=== PATIENT | female | born 1970 | race Hispanic/Latino ===

== ENCOUNTER 2018-04-13 16:11 | Emergency (ER) | payer SELFPAY ==
[~2018-04-13] VITALS: Ht 149.9 cm; Wt 72.6 kg
[2018-04-13] MEDS ORDERED: HYDROCODONE/APAP 7.5MG-325MG 1 EA TAB PO PRN (17:00)
--- NOTE | 2018-04-13 17:33 | Diagnostic Imaging Report ---
EXAM: KNEE LEFT THREE VIEWS DATE: 04/13/2018 4:47 PM INDICATION: ^r/o fx fall COMPARISON: None FINDINGS: No fracture or subluxation identified. Joint spaces are maintained. No significant joint effusion. IMPRESSION: No acute findings. Signed by: Dr. Itz Bird MD on 04/13/2018 5:29 PM
--- NOTE | 2018-04-13 17:33 | Diagnostic Imaging Report ---
EXAM: SHOULDER LEFT 1 VIEW DATE: 04/13/2018 4:47 PM INDICATION: ^r/o fx fall COMPARISON: None FINDINGS: Exam limited by single frontal view. Evaluation for subluxation/dislocation limited. No definite fracture or subluxation identified, however. Subacromial space maintained. Visualized lung clear. IMPRESSION: Within limitations of single view, no definite acute finding. Signed by: Dr. Itz Bird MD on 04/13/2018 5:30 PM
[2018-04-13 18:09] VITALS: BP 144/79
== END 2018-04-13 18:14 | disposition home or self-care (01) ==
LOC: ER 16:16
DX: S40.012A Contusion of left shoulder, initial encounter (principal); S80.02XA Contusion of left knee, initial encounter; W01.0XXA Fall on same level from slipping, tripping and stumbling without subsequent striking against object, initial encounter; Y92.008 Other place in unspecified non-institutional (private) residence as the place of occurrence of the external cause
CPT/HCPCS: 73020; 99283

== ENCOUNTER 2018-08-13 17:23 | Emergency (ER) | payer BC, OTHER ==
[~2018-08-13] VITALS: Ht 149.9 cm; Wt 72.6 kg
--- OUTSIDE RECORDS SUMMARY | 2018-08-13 17:26 | XMS REPORT ---
Author [facility] Address Unknown Phone Unavailable Care Team Providers Care Dust Collector Treater Name Role Phone Karissa LUTZ Unavailable Unavailable Payers Payer Name Policy Type Policy Number Effective Date Expiration Date Problems This patient has no known problems. Allergies, Adverse Reactions, Alerts Allergy Name Allergy Type Status Severity Reaction(s) Onset Date Inactive Date Treating Clinician Comments iodine DA Active U 2014-03-11 00:00:00 Medications This patient has no known medications. Results Test Description Test Time Test Comments Text Results Atomic Results Result Comments CBC W/AUTO DIFF 2018-06-29 18:06:00 WHITE BLOOD CELL (test code=WBC) 11.7 K/mm3 4.5-12.5 RED BLOOD CELL (test code=RBC) 4.95 mill/mm3 3.7-5.2 HEMOGLOBIN (test code=HGB) 14.8 gram/dL 11.5-15.5 HEMATOCRIT (test code=HCT) 45.4 % 36.0-46.0 MEAN CELL VOLUME (test code=MCV) 91.7 fL 80-98 MEAN CELL HGB (test code=MCH) 29.9 picogram 27.0-33.0 MEAN CELL HGB CONCETRATION (test code=MCHC) 32.6 gram/dL 33.0-36.0 RED CELL DISTRIBUTION WIDTH (test code=RDW) 12.3 % 11.6-16.2 RED CELL DISTRIBUTION WIDTH SD (test code=RDW-SD) 40.9 fL 37.0-51.0 PLATELET COUNT (test code=PLT) 269 K/mm3 150-450 MEAN PLATELET VOLUME (test code=MPV) 9.5 fL 6.7-11.0 NEUTROPHIL % (test code=NT%) 64.7 % 39.0-69.0 IMMATURE GRANULOCYTE % (test code=IG%) 0.3 % 0.0-5.0 LYMPHOCYTE % (test code=LY%) 26.5 % 25.0-55.0 MONOCYTE % (test code=MO%) 7.0 % 0.0-10.0 EOSINOPHIL % (test code=EO%) 1.1 % 0.0-5.0 BASOPHIL % (test code=BA%) 0.4 % 0.0-1.0 NUCLEATED RBC % (test code=NRBC%) 0.0 % 0-0 NEUTROPHIL # (test code=NT#) 7.54 K/mm3 1.8-7.7 IMMATURE GRANULOCYTE # (test code=IG#) 0.03 x10 3/uL 0-0.03 LYMPHOCYTE # (test code=LY#) 3.09 K/mm3 1.0-5.0 MONOCYTE # (test code=MO#) 0.82 K/mm3 0-0.8 EOSINOPHIL # (test code=EO#) 0.13 K/mm3 0.0-0.5 BASOPHIL # (test code=BA#) 0.05 K/mm3 0.0-0.2 NUCLEATED RBC # (test code=NRBC#) 0.00 K/mm3 0.0-0.1 BASIC METABOLIC [id number] 17:57:00* Test Item Value Reference Range Comments SODIUM (test code=NA) 141 mmol/L 136-145 POTASSIUM (test code=K) 3.6 mmol/L 3.5-5.1 CHLORIDE (test code=CL) 108.0 mmol/L 98-107 CARBON DIOXIDE (test code=CO2) 26.0 mmol/L 21-32 ANION GAP (test code=GAP) 10.6 10-20 GLUCOSE (test code=GLU) 91 mg/dL 74-106 BLOOD UREA NITROGEN (test code=BUN) 16 mg/dL 7-18 GLOMERULAR FILTRATION RATE (test code=GFR) 59 mL/min >=60 Estimated GFR by using Modified MDRD formula.Chronic kidney disease is defined as either kidney damageor GFR <60 mL/min/1.73 m2 for >3 months. CREATININE (test code=CREAT) 1.00 mg/dL 0.55-1.02 Note change in reference range due to change in reagent. BUN/CREATININE RATIO (test code=BUN/CREA) 16.3 10-20 CALCIUM (test code=CA) 9.1 mg/dL 8.5-10.1 CBC W/AUTO [id number] 17:56:00* Test Item Value Reference Range Comments WHITE BLOOD CELL (test code=WBC) K/mm3 4.5-12.5 RED BLOOD CELL (test code=RBC) mill/mm3 3.7-5.2 HEMOGLOBIN (test code=HGB) 14.8 gram/dL 11.5-15.5 HEMATOCRIT (test code=HCT) 45.4 % 36.0-46.0 MEAN CELL VOLUME (test code=MCV) fL 80-98 MEAN CELL HGB (test code=MCH) picogram 27.0-33.0 MEAN CELL HGB CONCETRATION (test code=MCHC) gram/dL 33.0-36.0 RED CELL DISTRIBUTION WIDTH (test code=RDW) % 11.6-16.2 RED CELL DISTRIBUTION WIDTH SD (test code=RDW-SD) fL 37.0-51.0 PLATELET COUNT (test code=PLT) K/mm3 150-450 MEAN PLATELET VOLUME (test code=MPV) fL 6.7-11.0 NEUTROPHIL % (test code=NT%) % 39.0-69.0 IMMATURE GRANULOCYTE % (test code=IG%) % 0.0-5.0 LYMPHOCYTE % (test code=LY%) % 25.0-55.0 MONOCYTE % (test code=MO%) % 0.0-10.0 EOSINOPHIL % (test code=EO%) % 0.0-5.0 BASOPHIL % (test code=BA%) % 0.0-1.0 NEUTROPHIL # (test code=NT#) K/mm3 1.8-7.7 LYMPHOCYTE # (test code=LY#) K/mm3 1.0-5.0 MONOCYTE # (test code=MO#) K/mm3 0-0.8 EOSINOPHIL # (test code=EO#) K/mm3 0.0-0.5 BASOPHIL # (test code=BA#) K/mm3 0.0-0.2 - CT HEAD/BRAIN W/O [id number] 17:56:00 Name: JUSTIN HORNE [facility] : 1970 Age/S: 47 / F [address] [facility] Unit #: [id number] Loc: [place] [id number] Phys: Mason Nolen Acct: [id number] Dis Date: Status: REG ER PHONE #: [phone] Exam Date: 06/29/2018 1754 FAX #: [phone] Reason: Headache EXAMS: CPT CODE: [id number] CT HEAD/BRAIN W/O CONT [id number] REASON FOR EXAM: Headache EXAM ORDER DATE: 06/29/2018 5:27 PM Ordering M.Piter.: Mason Nolen PROCEDURE: - CT HEAD/BRAIN W/O CONT COMPARISON: FINDINGS: CT images of the brain were obtained without IV contrast. Dose reduction techniques were applied. The brain parenchyma is within normal limits. The ivy-white matter delineation is unremarkable. The ventricles, cisterns, and sulci are unremarkable. There is no evidence of hemorrhage, mass, mass effect. There is no evidence of acute or old infarct. The calvarium is intact. IMPRESSION: Unremarkable brain. at 1756 Reported and signed by: Perry Marrero M.D. CC: Braulio Fabian MD; Mason Nolen Technologist:RT ANDREY(R) CT CTDI: DLP: Trnscb Date/Time: 06/29/2018 (1756) [email or web address] Orig Print D/T: S: 06/29/2018 (1800) CTDI: DLP: PAGE 1 Signed Report KNEE LEFT THREE [id number] 17:29:00 [place] [address] Patient Name: JUSTIN HORNE MR #: [id number] : 1970 Age/Sex: 47/F Req #: [id number] Adm Physician: Ordered by: ROSA PADILLA SUPERVISOR [employer] Report #: [id number] Location: ER Room/Bed: Procedure: [id number] DX/ KNEE LEFT THREE VIEWS Exam Date: Exam Time: REPORT STATUS: Signed EXAM: KNEE LEFT THREE VIEWS DATE: 04/13/2018 4:47 PM INDICATION: r/o fx fall COMPARISON: None FINDINGS: No fracture or subluxation identified. Joint spaces are maintained. No significant joint effusion. IMPRESSION: No acute findings. Signed by: Dr. Letty Bird MD on 04/13/2018 5:29 PM Dictated By: LETTY BIRD MD 28 Transcribed By: NKECHI on 04/13/181728 COPY TO: ROSA PADILLA SUPERVISOR [employer] SHOULDER LEFT 1 [id number] 17:29:00 [place] [address] Patient Name: JUSTIN HORNE MR #: [id number] : 1970 Age/Sex: 47/F Req #: [id number] Adm Physician: Ordered by: ROSA PADILLA SUPERVISOR [employer] Report #: [id number] Location: ER Room/Bed: Procedure: [id number] DX/ SHOULDER LEFT 1 VIEW Exam Date: Exam Time: REPORT STATUS: Signed EXAM: SHOULDER LE FT 1 VIEW DATE: 04/13/2018 4:47 PM INDICATION: r/o fx fall COMPARISON: None FINDINGS: Exam limited by single frontal view. Evaluati on for subluxation/dislocation limited. No definite fracture or subluxation id entified, however. Subacromial space maintained. Visualized lung clear. I MPRESSION: Within limitations of single view, no definite acute finding. Signed by: Dr. Letty Bird MD on 04/13/2018 5:30 PM Dictated By: LETTY BIRD MD [address] scribed By: NKECHI on 04/13/181729 COPY TO: ROSA PADILLA NP
[2018-08-13 19:21] LABS: BASOPHILS % 0.3 % (0.0-1.0); EOSINOPHILS % 0.4 % (0.0-6.0); HEMATOCRIT 44.5 % (34.2-44.1); HEMOGLOBIN 14.9 g/dL (12.0-16.0); LYMPHOCYTES # (AUTO) 2.1 (1.0-3.2); LYMPHOCYTES % 20.8 % (18.0-39.1); MEAN CORPUSCULAR HEMOGLOBIN 30.5 pg (28-32); MEAN CORPUSCULAR HGB CONC 33.5 g/dL (31-35); MONOCYTES # (AUTO) 0.7 (0.2-0.8); NEUTROPHILS # (AUTO) 7.2 (2.1-6.9); NEUTROPHILS % 71.1 % (38.7-80.0); PLATELET COUNT 242 x10e3/uL (140-360); RED BLOOD COUNT 4.89 x10e6/uL (3.6-5.1); RED CELL DISTRIBUTION WIDTH 12.2 % (11.7-14.4)
--- NOTE | 2018-08-13 19:21 | Diagnostic Imaging Report ---
History: Dizziness Comparison studies: None Technique: Axial images were obtained from the skull base to the vertex. Coronal and sagittal reconstructions obtained from the axial data. Dose modulation, iterative reconstruction, and/or weight based adjustment of the mA/kV was utilized to reduce the radiation dose to as low as reasonably achievable. Intravenous contrast: None Findings: Scalp/skull: No abnormalities. No fractures, blastic or lytic lesions. Extra-axial spaces: No masses. No fluid collections. Brain sulci: Appropriate for age. Ventricles: Normal in size and configuration. No hydrocephalus. Parenchyma: No abnormal densities. No masses, hemorrhage, acute or chronic cortical vascular insults. Sellar/suprasellar region: No abnormalities Craniocervical junction: Patent foramen magnum. No Chiari one malformation. IMPRESSION: No abnormalities. Signed by: Dr. Jimmie Lambert M.D. on 08/13/2018 7:18 PM
[2018-08-13 19:24] LABS: CLARITY,URINE SL CLOUDY (CLEAR); COLOR,URINE YELLOW (YELLOW)
[2018-08-13 19:25] LABS: BILIRUBIN,URINE NEGATIVE (NEGATIVE); KETONES,URINE 1+ (NEGATIVE); LEUKOCYTE ESTERASE ,URINE 1+ (NEGATIVE); NITRITE,URINE NEGATIVE (NEGATIVE); PROTEIN,URINE DIPSTICK NEGATIVE (NEGATIVE); URINE UROBILINOGEN 0.2 mg/dL (0.2 - 1)
[2018-08-13 19:27] LABS: INR 0.93
[2018-08-13 19:34] LABS: BACTERIA,URINE MANY /HPF; EPITHELIAL CELLS,URINE MODERATE /LPF
[2018-08-13 19:35] LABS: ALANINE AMINOTRANSFERASE 18 IU/L (0-55); ALBUMIN 4.3 g/dL (3.5-5.0); ALBUMIN/GLOBULIN RATIO 1.1 (0.8-2.0); ALKALINE PHOSPHATASE 80 IU/L (40-150); ANION GAP 13.6 mmol/L (8-16); BLOOD UREA NITROGEN 20 mg/dL (7-26); BUN/CREATININE RATIO 22 (6-25); CALCIUM 9.7 mg/dL (8.4-10.2); CARBON DIOXIDE 26 mmol/L (22-29); CHLORIDE 104 mmol/L (98-107); CREATININE, SERUM 0.89 mg/dL (0.57-1.11); EST GLOMERULAR FILTRATION RATE > 60 ML/MIN (60-); GLUCOSE 80 mg/dL (74-118); POTASSIUM 3.6 mmol/L (3.5-5.1); SODIUM 140 mmol/L (136-145)
--- NOTE | 2018-08-13 23:12 | Diagnostic Imaging Report ---
EXAMINATION: PA and lateral views of the chest. COMPARISON: None CLINICAL HISTORY: Low blood pressure, chest pressure DISCUSSION: Lines/tubes: None. Lungs: The lungs are well inflated and clear. There is no evidence of pneumonia or pulmonary edema. Pleura: There is no pleural effusion or pneumothorax. Heart and mediastinum: Cardiomediastinal silhouette is unremarkable. Pulmonary vasculature is normal. Bones and soft tissues: No acute bony abnormalities . Rightward curvature of the thoracic spine. IMPRESSION: No acute cardiopulmonary abnormalities. Signed by: Dr. Jerry King M.D. on 08/13/2018 11:09 PM
[2018-08-13] MEDS ORDERED: CEFTRIAXONE SOD 1 GM/NS 50 ML 50 ML IV ONE (23:45)
[2018-08-14] MEDS ORDERED: ACETAMINOPHEN/CODEINE 300MG - 30MG TAB PO ONE
[2018-08-14 00:17] VITALS: BP 120/86
== END 2018-08-14 00:55 | disposition home or self-care (01) ==
LOC: ER 17:27
DX: R42 Dizziness and giddiness (principal); R55 Syncope and collapse; N30.91 Cystitis, unspecified with hematuria
CPT/HCPCS: 36415; 70450; 71046; 80053; 81001; 85025; 85610; 93005; 99284; J0696

== ENCOUNTER 2023-09-12 17:35 | Observation (INO) | payer OTHER ==
[~2023-09-12] VITALS: Ht 149.9 cm; Wt 89.4 kg
[~2023-09-12 17:35] MED LIST: ACETAMINOPHEN-1 EAC4 PO; LISINOPRIL30 MG PO; MELATONIN3 MG PO; PREDNISONE20 MG PO; ZYRTEC10 MG PO
[2023-09-12 18:47] LABS: BASOPHILS # (AUTO) 0.1 (0.0-0.1); BASOPHILS % 0.9 % (0.0-1.0); EOSINOPHILS # (AUTO) 0.2 (0.0-0.4); EOSINOPHILS % 2.2 % (0.0-6.0); HEMATOCRIT 41.9 % (34.2-44.1); HEMOGLOBIN 14.8 g/dL (12.0-16.0); LYMPHOCYTES # (AUTO) 2.3 (1.0-3.2); LYMPHOCYTES % 26.2 % (18.0-39.1); MEAN CORPUSCULAR HEMOGLOBIN 31.6 pg (28-32); MEAN CORPUSCULAR HGB CONC 35.3 g/dL (31-35); MEAN CORPUSCULAR VOLUME 89.5 fL (81-99); MONOCYTES # (AUTO) 0.8 (0.2-0.8); MONOCYTES % 8.7 % (4.4-11.3); NEUTROPHILS # (AUTO) 5.4 (2.1-6.9); NEUTROPHILS % 61.4 % (38.7-80.0); PLATELET COUNT 270 x10e3/uL (140-360); RED BLOOD COUNT 4.68 x10e6/uL (3.6-5.1); RED CELL DISTRIBUTION WIDTH 12.7 % (11.7-14.4); WHITE BLOOD COUNT 8.83 x10e3/uL (4.8-10.8)
[2023-09-12 18:59] LABS: ALBUMIN 4.5 g/dL (3.5-5.0); ALBUMIN/GLOBULIN RATIO 1.4 (0.8-2.0); ANION GAP 15.9 mmol/L (8-16); BILIRUBIN,TOTAL 0.7 mg/dL (0.2-1.2); CALCIUM 9.7 mg/dL (8.4-10.2); CREATININE, SERUM 0.83 mg/dL (0.57-1.11); POTASSIUM 3.9 mmol/L (3.5-5.1); TOTAL PROTEIN 7.7 g/dL (6.5-8.1)
[2023-09-12 20:14] LABS: BILIRUBIN,URINE NEGATIVE (NEGATIVE); CLARITY,URINE CLOUDY (CLEAR); COLOR,URINE YELLOW (YELLOW); GLUCOSE, URINE NEGATIVE (NEGATIVE); KETONES,URINE TRACE (NEGATIVE); LEUKOCYTE ESTERASE ,URINE NEGATIVE (NEGATIVE); NITRITE,URINE NEGATIVE (NEGATIVE); PH,URINE 6 (5 - 7); PROTEIN,URINE DIPSTICK NEGATIVE (NEGATIVE); URINE UROBILINOGEN 0.2 mg/dL (0.2 - 1)
[2023-09-12 20:34] LABS: BACTERIA,URINE MANY /HPF; EPITHELIAL CELLS,URINE FEW /LPF; OTHER CRYSTALS,URINE PRESENT; WBC,URINE (MAN) 0-5 /HPF (0-5)
[2023-09-12] MEDS ORDERED: HYDRALAZINE HCL 20 MG/ML VIAL IV PRN (21:15)
[2023-09-12] MEDS ORDERED: SODIUM CHLORIDE FLUSH 10 ML SYR INJ PRN (21:15)
[2023-09-12 22:30] VITALS: BP 140/88; PULSE 78; RESP 20; TEMP 98.5; O2SAT 98
[2023-09-12 22:54] VITALS: BP 140/88; PULSE 78; RESP 20; TEMP 98.5; O2SAT 98
[2023-09-12] MEDS: KETOROLAC TROMETHAMINE 30 MG/ML VIAL IM PRN (23:33)
[2023-09-12] MEDS ORDERED: METAXALONE800 MG PO (23:40)
[2023-09-12] MEDS ORDERED: TIZANIDINE HCL4 MG PO (23:40)
[2023-09-12] MEDS ORDERED: IBUPROFEN600 MG PO (23:40)
[2023-09-12 23:50] VITALS: BP 140/88; PULSE 78; RESP 20; TEMP 98.5; O2SAT 98
[2023-09-13 00:37] LABS: TROPONIN I 0.001 ng/mL (0-0.300)
[2023-09-13 04:00] VITALS: BP 143/93; PULSE 73; RESP 21; TEMP 98.7; O2SAT 94
[2023-09-13 08:08] LABS: BASOPHILS # (AUTO) 0.1 (0.0-0.1); BASOPHILS % 0.7 % (0.0-1.0); EOSINOPHILS # (AUTO) 0.2 (0.0-0.4); EOSINOPHILS % 2.6 % (0.0-6.0); HEMATOCRIT 40.6 % (34.2-44.1); HEMOGLOBIN 14.1 g/dL (12.0-16.0); LYMPHOCYTES # (AUTO) 3.5 (1.0-3.2); LYMPHOCYTES % 39.8 % (18.0-39.1); MEAN CORPUSCULAR HEMOGLOBIN 31.5 pg (28-32); MEAN CORPUSCULAR HGB CONC 34.7 g/dL (31-35); MEAN CORPUSCULAR VOLUME 90.8 fL (81-99); MONOCYTES # (AUTO) 0.9 (0.2-0.8); MONOCYTES % 9.7 % (4.4-11.3); NEUTROPHILS # (AUTO) 4.1 (2.1-6.9); PLATELET COUNT 249 x10e3/uL (140-360); RED BLOOD COUNT 4.47 x10e6/uL (3.6-5.1); RED CELL DISTRIBUTION WIDTH 12.6 % (11.7-14.4); WHITE BLOOD COUNT 8.74 x10e3/uL (4.8-10.8)
[2023-09-13] MEDS ORDERED: ACETAMINOPHEN 325 MG TAB PO PRN (08:15)
[2023-09-13] MEDS ORDERED: IBUPROFEN 600 MG TAB PO PRN (08:15)
[2023-09-13] MEDS ORDERED: ONDANSETRON HCL INJ 2MG/ML 2ML 2 MG/ML VIAL IV PRN (08:15)
[2023-09-13 08:25] VITALS: BP 136/92; PULSE 77; RESP 18; TEMP 98.6; O2SAT 98
[2023-09-13 08:32] LABS: ALBUMIN/GLOBULIN RATIO 1.4 (0.8-2.0); ANION GAP 14.9 mmol/L (8-16); CALCIUM 9.1 mg/dL (8.4-10.2); CREATINE KINASE 119 IU/L (29-168); CREATININE, SERUM 0.8 mg/dL (0.57-1.11); POTASSIUM 3.9 mmol/L (3.5-5.1); TOTAL PROTEIN 6.9 g/dL (6.5-8.1)
[2023-09-13 08:43] LABS: TROPONIN I < 0.001 ng/mL (0-0.300)
[2023-09-13] MEDS: LISINOPRIL 20 MG TAB PO SCH (10:50)
[2023-09-13 11:53] VITALS: BP 142/93; PULSE 78; RESP 20; TEMP 98.5; O2SAT 94
[2023-09-13 15:00] VITALS: BP 96/93; PULSE 80; RESP 20; TEMP 97.4; O2SAT 97
== END 2023-09-13 18:22 | disposition home or self-care (01) ==
LOC: ER 18:23 → ERHOLD 21:11 → MED/SURG3 22:11
PROVIDERS: ADMIT Internal Medicine; ATTEND Internal Medicine
DX: R41.0 Disorientation, unspecified (principal); T43.215A Adverse effect of selective serotonin and norepinephrine reuptake inhibitors, initial encounter; I10 Essential (primary) hypertension; Q05.4 Unspecified spina bifida with hydrocephalus; G93.5 Compression of brain; G89.29 Other chronic pain; M47.812 Spondylosis without myelopathy or radiculopathy, cervical region; R94.31 Abnormal electrocardiogram [ECG] [EKG]; Z11.52 Encounter for screening for COVID-19; Y92.009 Unspecified place in unspecified non-institutional (private) residence as the place of occurrence of the external cause; Z79.899 Other long term (current) drug therapy
CPT/HCPCS: 36415 ×2; 70450; 71045; 80053 ×2; 81001; 82550 ×2; 84484 ×2; 85025 ×2; 93005; 99284; G0378 ×2; U0002

== ENCOUNTER 2023-12-12 10:52 | Emergency (ER) | payer OTHER ==
[~2023-12-12] VITALS: Ht 149.9 cm; Wt 78.0 kg
[~2023-12-12 10:52] MED LIST changes: +IBUPROFEN600 MG PO; +METAXALONE800 MG PO; +TIZANIDINE HCL4 MG PO
[2023-12-12 11:01] VITALS: TEMP 98.7
[2023-12-12 12:46] LABS: BASOPHILS # (AUTO) 0.1 (0.0-0.1); BASOPHILS % 0.5 % (0.0-1.0); EOSINOPHILS # (AUTO) 0.3 (0.0-0.4); EOSINOPHILS % 3.1 % (0.0-6.0); HEMATOCRIT 40.9 % (34.2-44.1); HEMOGLOBIN 13.2 g/dL (12.0-16.0); LYMPHOCYTES # (AUTO) 2.6 (1.0-3.2); LYMPHOCYTES % 25.7 % (18.0-39.1); MEAN CORPUSCULAR HEMOGLOBIN 30.6 pg (28-32); MEAN CORPUSCULAR HGB CONC 32.3 g/dL (31-35); MEAN CORPUSCULAR VOLUME 94.9 fL (81-99); MONOCYTES # (AUTO) 0.7 (0.2-0.8); NEUTROPHILS # (AUTO) 6.5 (2.1-6.9); NEUTROPHILS % 63.4 % (38.7-80.0); PLATELET COUNT 267 x10e3/uL (140-360); RED BLOOD COUNT 4.31 x10e6/uL (3.6-5.1); RED CELL DISTRIBUTION WIDTH 12.4 % (11.7-14.4); WHITE BLOOD COUNT 10.22 x10e3/uL (4.8-10.8)
[2023-12-12 13:01] LABS: INR 1.39; PROTHROMBIN TIME 17.9 seconds (11.9-14.5)
[2023-12-12 13:02] LABS: PARTIAL THROMBOPLASTIN TIME 34.9 seconds (23.8-35.5)
[2023-12-12 13:10] LABS: ALANINE AMINOTRANSFERASE 31 IU/L (0-55); ALBUMIN/GLOBULIN RATIO 1.4 (0.8-2.0); ALKALINE PHOSPHATASE 65 IU/L (40-150); ANION GAP 15.8 mmol/L (8-16); BILIRUBIN,TOTAL 0.5 mg/dL (0.2-1.2); BLOOD UREA NITROGEN 22 mg/dL (7-26); BUN/CREATININE RATIO 22 (6-25); CARBON DIOXIDE 20 mmol/L (22-29); CHLORIDE 108 mmol/L (98-107); CREATINE KINASE 64 IU/L (29-168); CREATININE, SERUM 0.98 mg/dL (0.57-1.11); EST GLOMERULAR FILTRATION RATE 69 ML/MIN (>=60); GLUCOSE 93 mg/dL (74-118); POTASSIUM 3.8 mmol/L (3.5-5.1); SODIUM 140 mmol/L (136-145); TOTAL PROTEIN 6.9 g/dL (6.5-8.1)
[2023-12-12 13:17] LABS: TROPONIN I < 0.001 ng/mL (0-0.300)
[2023-12-12] MEDS: SODIUM CHLORIDE 0.9% 1000ML 1,000 ML IV STA (13:18)
[2023-12-12] MEDS ORDERED: SODIUM CHLORIDE 0.9% 100 ML ONE (13:42)
[2023-12-12] MEDS: ACETAMINOPHEN 325 MG TAB PO ONE (13:43)
[2023-12-12] MEDS ORDERED: IOPAMIDOL 370 MG/ML 100 ML INFUS..BTL INJ ONE (13:43)
[2023-12-12 16:22] VITALS: PULSE 65; RESP 16
[2023-12-12] MEDS ORDERED: ULTRAM 50MG50 MG PO (16:30)
[2023-12-12 16:43] VITALS: BP 120/78; PULSE 64; RESP 16; O2SAT 98
== END 2023-12-12 16:43 | disposition home or self-care (01) ==
LOC: ER 11:01
DX: R07.81 Pleurodynia (principal); I26.99 Other pulmonary embolism without acute cor pulmonale; I10 Essential (primary) hypertension; Q07.03 Arnold-Chiari syndrome with spina bifida and hydrocephalus; Z11.52 Encounter for screening for COVID-19; R94.31 Abnormal electrocardiogram [ECG] [EKG]; Z86.718 Personal history of other venous thrombosis and embolism
CPT/HCPCS: 36415; 71045; 71260; 80053; 82550; 83735; 83880; 84484; 85025; 85610; 85730; 93005; 99284; J7030; J7050; Q9967; U0002